=== PATIENT | male | born 1985 | race Caucasian/White ===

== ENCOUNTER 2018-11-08 21:33 | Emergency (ER) | payer OTHER ==
[~2018-11-08] VITALS: Ht 172.7 cm; Wt 95.3 kg
[2018-11-08] MEDS ORDERED: LISINOPRIL10 MG PO (21:45)
[2018-11-08] MEDS ORDERED: ZYLOPRIM300 MG PO (21:45)
[2018-11-08 22:11] LABS: ABSOLUTE BASOPHILS 0.1 thou/uL (0.0-0.2); ABSOLUTE EOSINOPHILS 0.2 thou/uL (0.0-0.7); ABSOLUTE LYMPHOCYTES 2.3 thou/uL (0.8-5.3); ABSOLUTE MONOCYTES 0.6 thou/uL (0.0-1.2); ABSOLUTE NEUTROPHILS 4.5 thou/uL (1.6-8.1); BASOPHILS 1.4 %; EOSINOPHILS 3.2 %; HEMATOCRIT 49.5 % (42.0-52.0); LYMPHOCYTES 29.4 %; MCH 30.6 pg (26.0-34.0); MCHC 34.4 g/dL (28.0-37.0); MCV 89.1 fL (80.0-100.0); MONOCYTES 7.9 %; MPV 7.4 fl. (7.2-11.1); NUCLEATED RBCS 0 /100WBC; PLATELET COUNT* 260 thou/uL (150-400); POLYS 58.1 %; RBC 5.56 mil/uL (4.50-6.00); RDW-CV 13.5 % (10.5-14.5); WBC 7.8 thou/uL (4.0-11.0)
[2018-11-08 22:15] LABS: CALCIUM 9.4 mg/dL (8.5-10.1); POTASSIUM 4.4 mmol/L (3.5-5.1)
[2018-11-08 22:20] LABS: ALBUMIN 3.9 g/dL (3.4-5.0); TOTAL BILIRUBIN 0.2 mg/dL (<0.1-1.0); TOTAL PROTEIN 7.3 g/dL (6.4-8.2)
[2018-11-08 22:30] LABS: URINE BILIRUBIN NEGATIVE (Negative); URINE BLOOD NEGATIVE (Negative); URINE CLARITY CLEAR; URINE COLOR YELLOW; URINE GLUCOSE-RANDOM NEGATIVE (Negative); URINE KETONES NEGATIVE (Negative); URINE LEUKOCYTES-REFLEX NEGATIVE (Negative); URINE NITRITE-REFLEX NEGATIVE (Negative); URINE PROTEIN NEGATIVE (Negative); URINE UROBILINOGEN 0.2 E.U./dl (0.2-1.0)
[2018-11-08 23:35] VITALS: BP 159/97
== END 2018-11-08 23:38 | disposition home or self-care (01) ==
LOC: M.ERS 21:33
PROVIDERS: Personal Emergency Response Attendant
DX: R09.82 Postnasal drip (principal); N18.3 Chronic kidney disease, stage 3 (moderate)